=== PATIENT | male | born 1945 | race Asian ===

== ENCOUNTER → 2019-01-16 | Day surgery (SDC) | payer MEDICARE, OTHER ==
[~2019-01-16] MED LIST: ACETAMINOPHEN 325MG TABLET PO PRN; ALLO100T MT; ASPIRIN/SOD BICARB/CITRIC ACID 324MG TAB EFF ONE; ATOR20TA MT; ATROPINE SULFATE 1MG/10ML SYR IV PRN; B CO1CAP5 MT; CLOP75TA4 MT; ESCI10TA MT; FENTANYL CITRATE/PF 50MCG/ML 2ML VIAL ONE; IODIXANOL 320MG/ML 100 ML BOTTLE IV ONE; IOHEXOL-300 100 ML BOTTLE ONE; LIDOCAINE HCL 1% 20ML VIAL (Pyxis) INJ ONE; METH10TA2 PO; MIDAZOLAM HCL 2 MG/2 ML VIAL ONE; MORPHINE SULFATE 2 MG/ML CPJ (NOT FOR IM USE) IV PRN; ONDANSETRON HCL 4MG/2ML INJ IV PRN
== END | disposition home or self-care (01) ==
LOC: CCL 06:33
PROVIDERS: ATTEND Specialist
DX: I25.119 Atherosclerotic heart disease of native coronary artery with unspecified angina pectoris (principal); R94.39 Abnormal result of other cardiovascular function study; I10 Essential (primary) hypertension; E78.5 Hyperlipidemia, unspecified; Z79.899 Other long term (current) drug therapy; Z82.49 Family history of ischemic heart disease and other diseases of the circulatory system
CPT/HCPCS: 85347; 93005; 93458; 93571; 99152; 99153; C1769; C1887; C1893; J1644; J2250; J3010; J3490; Q9967; G0500